=== PATIENT | male | born 1955 | race Caucasian/White ===

== ENCOUNTER 2017-05-18 16:49 | Emergency (ER) | payer OTHER, BC ==
[~2017-05-18] VITALS: Ht 177.8 cm; Wt 91.4 kg
[2017-05-18 16:54] VITALS: TEMP 36.8; Ht 177.8 cm; Wt 91.4 kg
--- NOTE | 2017-05-18 17:28 | DIAGNOSTIC IMAGING REPORT ---
L KNEE 3 VIEWS CLINICAL HISTORY: L knee pain TRAUMA COMPARISON: None. DISCUSSION: No fractures or dislocations are visualized. There are mild degenerative changes in the patellofemoral joint. IMPRESSION: 1. No acute fractures 2. Mild degenerative changes most pronounced within the patellofemoral joint Electronically signed by: Jarred Singh M.D. 05/18/2017 5:26 PM Dictated Date/Time: 05/18/2017 5:26 PM
[2017-05-18] MEDS ORDERED: EFF/375 PO (18:08)
[2017-05-18] MEDS ORDERED: VALS40TA2 PO (18:08)
[2017-05-18 18:55] VITALS: BP 138/86; PULSE 83; O2SAT 96
--- NOTE | 2017-05-18 20:40 | EMERGENCY ROOM VISIT NOTE ---
History First contact with patient: 17:02 Chief Complaint: KNEEPAIN Stated Complaint: LEFT KNEE PAIN/ HAPPENED AT WORK WC History of Present Illness The patient is a 62 year old male who presents to the Emergency Room with complaints of left knee pain. The patient is currently enrolled in the [employer] locally. The course is a 19 week course, and the patient reports that he is currently 10 weeks into the course. The patient reports that he just completed the physical requirements of the course. The patient reports left knee pain. He reports that he has had a prior history of left knee arthroscopy for meniscal tear. This was performed in 2013 at the [facility] in [place]. The patient currently denies any locking, instability or shifting of the knee. He reports that most of the pain appears to be over the medial aspect of the leg and joint. He denies any pain extending into the thigh or distal leg region. He denies any paresthesias or numbness. He rates his discomfort an 8 out of 10 with weightbearing. Review of Systems 10 system review was performed and was negative except for pertinent positives and negatives as indicated in history of present illness Past Medical/Surgical History Medical Problems: (1) Depression (2) Heart disease Surgical Problems: (1) History of arthroscopy of left knee Family History Unremarkable Social History Smoking Status: Never Smoker Alcohol Use: occasionally Marital Status: Occupation Status: employed Current/Historical Medications Scheduled Valsartan (Diovan), Unknown Dose PO DAILY Venlafaxine Hcl (Effexor), 37.5 MG PO DAILY Physical Exam Vital Signs Date Time Temp Pulse Resp B/P (MAP) Pulse Ox O2 Delivery O2 Flow Rate FiO2 05/18/17 18:55 83 16 138/86 96 05/18/17 16:54 36.8 83 20 137/80 95 Room Air Physical Exam CONSTITUTIONAL: Healthy and well nourished. Alert and oriented X 3 with positive affect. She does not appear in any acute distress. HEENT: Normocephalic, atraumatic. Pupils equal, round and reactive. NECK: Full active range of motion without discomfort. MUSCULOSKELETAL: Examination of the left knee does not show any obvious erythema , edema or ecchymosis. No joint effusion noted. The patient exhibits full active range of motion without significant discomfort. No crepitance noted. Negative anterior drawer, negative posterior drawer. Collateral ligaments are intact. The patient does have tenderness to palpation through the posterior medial and medial joint line. He also has tenderness through the pes anserine region without focal tenderness through the posterior hamstrings. No popliteal masses. Pedal pulses are intact. INTEGUMENTARY: No rash or other significant dermatologic conditions noted. NEUROLOGIC: Left lower extremity is sensory intact. Medical Decision & Procedures ER Provider Diagnostic Interpretation: My interpretation of left knee x-rays does not show any obvious effusions, fractures or dislocation. Degenerative changes are noted, particularly in the patellofemoral joint. Radiologist report is as follows: L KNEE 3 VIEWS CLINICAL HISTORY: L knee pain TRAUMA COMPARISON: None. DISCUSSION: No fractures or dislocations are visualized. There are mild degenerative changes in the patellofemoral joint. IMPRESSION: 1. No acute fractures 2. Mild degenerative changes most pronounced within the patellofemoral joint ED Course Patient history and physical exam were performed. Nurse's notes were reviewed. Vital signs were reviewed and were normal. X-rays of the left knee shows patellofemoral degenerative changes, otherwise no other acute findings are noted. Clinical exam does not show or suggest ligamentous instability. The patient was offered a knee immobilizer and/or crutches, and the patient refused. The patient reports that he would prefer to just apply ice to the knee until he can follow up with orthopedics for reevaluation. I did suggest that the patient follow-up with a Worker's Compensation approved orthopedic surgeon for further management given that this is a work-related injury. He was encouraged alternate ibuprofen and Tylenol as needed for pain. The patient was happy with plan of care, voiced understanding of all discharge instructions , refused any analgesics while in the emergency department, and rated his discomfort a 5 out of 10 at the time of discharge. Medical Decision Medication Reconcilliation Current Medication List: was personally reviewed by me Blood Pressure Screening Patient's blood pressure: Normal blood pressure Impression Primary Impression: Left knee injury Additional Impression: Work related injury Departure Information Patient Instructions My [facility] Health Problem Qualifiers
== END 2017-05-18 18:49 | disposition home or self-care (01) ==
LOC: C.EDB 16:50 → C.EDD 18:49
DX: S89.92XA Unspecified injury of left lower leg, initial encounter (principal); X58.XXXA Exposure to other specified factors, initial encounter; Y99.0 Civilian activity done for income or pay; Z98.890 Other specified postprocedural states; F32.9 Major depressive disorder, single episode, unspecified; Z79.899 Other long term (current) drug therapy